=== PATIENT | female | born 1980 | race Caucasian/White ===

== ENCOUNTER → 2016-02-26 | Outpatient (CLI) | payer BC ==
[2016-02-26 18:04] LABS: RANDOM URINE PROTEIN 18 MG/DL (0-11.99)
== END ==
LOC: MOB LAB 16:46
PROVIDERS: ATTEND Student in an Organized Health Care Education/Training Program
DX: O13.3 Gestational [pregnancy-induced] hypertension without significant proteinuria, third trimester (principal); Z3A.39 39 weeks gestation of pregnancy
CPT/HCPCS: 82565; 84156

== ENCOUNTER 2016-02-27 08:47 | Outpatient (CLI) | payer BC ==
[2016-02-27] MEDS ORDERED: NORMAL SALINE 10 ML SYRINGE FLUSH IVP PRN (08:52)
[2016-02-27 09:10] VITALS: RESP 18; TEMP 98.2
[2016-02-27 09:32] LABS: HEMATOCRIT 33.4 % (37.0-47.0); HEMOGLOBIN 10.9 g/dL (12.0-16.0); MEAN CORPUSCULAR HEMOGLOBIN 28.5 PG (27-31); MEAN CORPUSCULAR HGB CONC 32.6 g/dL (33-37); MEAN PLATELET VOLUME 10.4 FL (7.4-12.2); RDW COEFFICIENT OF VARIATION 14.4 % (11.5-14.5); RED BLOOD COUNT 3.82 10^6/uL (4.20-5.40); WHITE BLOOD COUNT 9.9 10^3/uL (4.8-10.8)
[2016-02-27 10:13] LABS: ASPARTATE AMINO TRANSFERASE 18 IU/L (8-39); BILIRUBIN,TOTAL 0.5 mg/dL (0.3-1.2); BLOOD UREA NITROGEN 11 mg/dL (7-22); BUN/CREATININE RATIO 18.33 (6-20); CALCIUM 8.9 mg/dL (8.7-10.7); CHLORIDE 107 meq/L (98-112); CREATININE 0.6 mg/dL (0.50-1.20); EST GLOMERULAR FILTRATION > 60 (>60 ml/min/1.73m(2)); GLUCOSE 89 mg/dL (78-110); POTASSIUM 3.7 meq/L (3.8-5.2); SODIUM 135 meq/L (135-145); URIC ACID 5.9 mg/dl (2.5-6.2)
[2016-02-27 10:14] LABS: TOTAL PROTEIN 6.3 g/dL (6.1-8.0)
[2016-02-28 08:21] LABS: RANDOM URINE PROTEIN < 5 MG/DL (0-11.99)
--- NOTE | 2016-02-28 08:49 | PDOC(PROG) ---
Intake - - Reason for Visit/Chief Complaint: NST Admitted From: Home - Estimated Due Date: 03/04/16 Gestational Age in Weeks and Days: 39 Weeks and 2 Days : 1 Para: 0 Term Births: 0 Births: 0 Number of Abortions (Spont./Elective): 0 Living Children: 0 - Labs Blood Type and Rh: O- Group B Strep: Negative Hepatitis B Surface Antigen: Absent HIV: Negative Rubella Status: Immune VDRL/RPR: Absent Maternal - Vital Signs Last Taken Vital Signs: Vital Signs - Last Taken Temperature 98.2 F 02/27/16 09:10 Pulse Rate 91 02/27/16 09:10 Respiratory Rate 18 02/27/16 09:10 Blood Pressure 133/86 02/27/16 09:10 Pulse Ox 98 02/27/16 09:10 - Uterine Activity Uterine Contraction Monitor Mode: External Uterine Contraction Pattern: Absent - Vaginal Discharge Vaginal Bleeding Amount: None Vaginal Discharge Amount: None Monitoring - Uterine Activity Uterine Contraction Monitor Mode: External Uterine Contraction Pattern: Absent Results - Labs CBC and BMP: 02/27/16 08:52 02/27/16 08:52 Assessment and Plan - Patient Problems (1) Proteinuria affecting in third trimester Status: Acute Support Text: Patient's random urine pr:cr came back 0.6. Patient in for NST, BPs and labs. All wnl. Cervical check cl/thick/-2. Precautions. Plan biweekly NSTs, weekly labs, and close monitoring of BP.
== END 2016-02-27 09:35 | disposition home or self-care (01) ==
LOC: OBOP 08:47
PROVIDERS: ATTEND Student in an Organized Health Care Education/Training Program
DX: O16.3 Unspecified maternal hypertension, third trimester (principal); O12.13 Gestational proteinuria, third trimester; Z3A.39 39 weeks gestation of pregnancy
CPT/HCPCS: 59025; 80053; 82565; 83615; 84156; 84550; 85025; 99211

== ENCOUNTER 2016-03-02 16:03 | Outpatient (CLI) | payer BC ==
[2016-03-02] MEDS ORDERED: NORMAL SALINE 10 ML SYRINGE FLUSH IVP PRN (16:36)
== END 2016-03-02 16:40 | disposition home or self-care (01) ==
LOC: OBOP 16:03
PROVIDERS: ATTEND Student in an Organized Health Care Education/Training Program
DX: O12.13 Gestational proteinuria, third trimester (principal); Z3A.39 39 weeks gestation of pregnancy
CPT/HCPCS: 59025; 81003; 99211

== ENCOUNTER 2016-03-03 18:37 | Outpatient (CLI) | payer BC ==
[2016-03-03] MEDS ORDERED: NORMAL SALINE 10 ML SYRINGE FLUSH IVP PRN (19:17)
[2016-03-03 19:46] VITALS: RESP 20; TEMP 98.1
--- NOTE | 2016-03-07 10:34 | PDOC(PROG) ---
Intake - - Reason for Visit/Chief Complaint: Leakage of Fluid Admitted From: Home - Estimated Due Date: 03/04/16 Gestational Age in Weeks and Days: 40 Weeks and 3 Days : 1 Para: 0 Term Births: 0 Births: 0 Number of Abortions (Spont./Elective): 0 Living Children: 0 - Labs Blood Type and Rh: O- Group B Strep: Negative Hepatitis B Surface Antigen: Absent HIV: Negative Rubella Status: Immune VDRL/RPR: Absent Maternal - Vital Signs Last Taken Vital Signs: Vital Signs - Last Taken Temperature 98.1 F 03/03/16 19:18 Pulse Rate 76 03/03/16 19:18 Respiratory Rate 20 03/03/16 19:18 Blood Pressure 126/77 03/03/16 19:18 Pulse Ox 98 03/03/16 19:18 - Uterine Activity Uterine Contraction Monitor Mode: External Uterine Contraction Pattern: Absent - Vaginal Discharge Vaginal Bleeding Amount: None Vaginal Discharge Amount: Small Vaginal Discharge Description: Watery Vaginal Discharge Color: Clear Vaginal Discharge Odor: Odorless Vaginal Itching: No Monitoring - Uterine Activity Uterine Contraction Monitor Mode: External Uterine Contraction Pattern: Absent Results - Bedside Testing Bedside Urine Ketone: Negative Bedside Urine Leukocytes Esterase: Negative Bedside Urine Nitrite: Negative Bedside Urine Occult Blood: Negative Bedside Urine Protein: Negative Bedside Specific Craig: 1.020 Assessment and Plan - Assessment / Plan Additional Assessment/Plan Details: Negative amnisure test. Reassuring maternal and evaluation. No evidence of labor. Discharge to home in good condition. - Time Time Spent With Patient: Less Than 15 Minutes
== END 2016-03-03 19:50 | disposition home or self-care (01) ==
LOC: OBOP 18:37
PROVIDERS: ATTEND Obstetrics & Gynecology
DX: O26.893 Other specified pregnancy related conditions, third trimester (principal); N89.8 Other specified noninflammatory disorders of vagina; Z3A.39 39 weeks gestation of pregnancy
CPT/HCPCS: 59025; 81003; 84112; 99211

== ENCOUNTER → 2016-03-04 | Outpatient (CLI) | payer BC | LOC: MOB LAB 16:08 | PROVIDERS: ATTEND Student in an Organized Health Care Education/Training Program | DX: O13.3 Gestational [pregnancy-induced] hypertension without significant proteinuria, third trimester (principal); Z3A.40 40 weeks gestation of pregnancy | CPT/HCPCS: 82565; 84156 ==

== ENCOUNTER 2016-03-05 16:00 | Outpatient (CLI) | payer BC ==
[2016-03-05] MEDS ORDERED: NORMAL SALINE 10 ML SYRINGE FLUSH IVP PRN (16:14)
[2016-03-05 16:19] VITALS: RESP 20; TEMP 97.7
[2016-03-05 16:47] LABS: HEMATOCRIT 32.7 % (37.0-47.0); HEMOGLOBIN 11.1 g/dL (12.0-16.0); MEAN CORPUSCULAR HEMOGLOBIN 29.6 PG (27-31); MEAN CORPUSCULAR HGB CONC 33.9 g/dL (33-37); MEAN PLATELET VOLUME 10.5 FL (7.4-12.2); RDW COEFFICIENT OF VARIATION 14.5 % (11.5-14.5); RED BLOOD COUNT 3.75 10^6/uL (4.20-5.40); WHITE BLOOD COUNT 9.95 10^3/uL (4.8-10.8)
[2016-03-05 16:56] LABS: ASPARTATE AMINO TRANSFERASE 18 IU/L (8-39); BILIRUBIN,TOTAL 0.6 mg/dL (0.3-1.2); BLOOD UREA NITROGEN 11 mg/dL (7-22); BUN/CREATININE RATIO 13.75 (6-20); CALCIUM 9.3 mg/dL (8.7-10.7); CHLORIDE 104 meq/L (98-112); CREATININE 0.8 mg/dL (0.50-1.20); EST GLOMERULAR FILTRATION > 60 (>60 ml/min/1.73m(2)); GLUCOSE 73 mg/dL (78-110); POTASSIUM 3.8 meq/L (3.8-5.2); SODIUM 134 meq/L (135-145); TOTAL PROTEIN 6.5 g/dL (6.1-8.0); URIC ACID 5.9 mg/dl (2.5-6.2)
== END 2016-03-05 18:00 | disposition home or self-care (01) ==
LOC: OBOP 16:00
PROVIDERS: ATTEND Student in an Organized Health Care Education/Training Program
DX: O13.3 Gestational [pregnancy-induced] hypertension without significant proteinuria, third trimester (principal); Z3A.40 40 weeks gestation of pregnancy
CPT/HCPCS: 59025; 80053; 81003; 83615; 84550; 85025; 99211

== ENCOUNTER 2016-03-08 18:26 | Inpatient (IN) | payer BC ==
[2016-03-08] MEDS ORDERED: Famotidine Inj 20 MG in Normal Saline Flush 10 ML IVP PRN ×4 (19:43)
[2016-03-08] MEDS ORDERED: diphenhydrAMINE 50 MG/1 ML VIAL IVP PRN (19:43)
[2016-03-08] MEDS ORDERED: NALOXONE 0.4 MG/1 ML VIAL IVP PRN (19:43)
[2016-03-08] MEDS ORDERED: Phenylephrine Inj 50 MCG in Normal Saline Flush 0.5 ML IVP PRN (19:43)
[2016-03-08] MEDS ORDERED: CALCIUM CARBONATE 500 MG (TUMS) CHEWABLE TABLET PO PRN (19:43)
[2016-03-08] MEDS ORDERED: LIDOCAINE W/ SODIUM BICARB 0.5 ML SYR SUBD PRN (19:43)
[2016-03-08] MEDS ORDERED: TERBUTALINE SULFATE 1 MG/1 ML SDV SUBCUT PRN (19:43)
[2016-03-08] MEDS ORDERED: Lidocaine 1% 10 MG/ML - 20 ML VIAL SUBCUT PRN (19:43)
[2016-03-08] MEDS ORDERED: Nalbuphine Inj 20 MG/ML Ampule IVP PRN (19:43)
[2016-03-08] MEDS ORDERED: ePHEDrine Inj 5 MG in Normal Saline Flush 1 ML IVP PRN (19:43)
[2016-03-08] MEDS ORDERED: Naloxone Inj 0.01 MG in Normal Saline Flush 1 ML IVP PRN (19:43)
[2016-03-08] MEDS ORDERED: MISOPROSTOL 200 MCG TABLET RECTAL PRN (19:43)
[2016-03-08] MEDS ORDERED: OXYTOCIN 10 UNIT/1 ML IM PRN (19:43)
[2016-03-08] MEDS ORDERED: CefOXitin Inj 2 GM in Sodium Chloride 0.9% 100 ML IV PRN (19:43)
[2016-03-08] MEDS ORDERED: BUTORPHANOL TARTRATE 2 MG/1 ML VIAL IVP PRN (19:43)
[2016-03-08] MEDS ORDERED: Carboprost Inj 250 MCG/ML AMP IM PRN (19:43)
[2016-03-08] MEDS ORDERED: NORMAL SALINE 10 ML SYRINGE FLUSH IVP PRN (19:43)
[2016-03-08] MEDS ORDERED: CITRIC ACID/SODIUM CITRATE 30 ML CUP PO PRN (19:43)
[2016-03-08] MEDS ORDERED: ONDANSETRON 4 MG/2 ML VIAL IVP PRN (19:43)
[2016-03-08] MEDS ORDERED: METHYLERGONOVINE MALEATE 0.2 MG/1 ML VIAL IM PRN (19:43)
[2016-03-08] MEDS ORDERED: Metoclopramide Inj 10 MG/2 ML VIAL IV PRN (19:43)
[2016-03-08] MEDS ORDERED: Oxytocin 20 Units + LR 1,000 ML IV SCH (19:45)
[2016-03-08] MEDS ORDERED: Misoprostol Tab 100 MCG TAB VAGINAL PRN (19:51)
[2016-03-08 20:40] LABS: HEMATOCRIT 35.9 % (37.0-47.0); MEAN CORPUSCULAR HEMOGLOBIN 28.6 PG (27-31); MEAN CORPUSCULAR HGB CONC 33.4 g/dL (33-37); MEAN PLATELET VOLUME 10.7 FL (7.4-12.2); RDW COEFFICIENT OF VARIATION 14.4 % (11.5-14.5); RED BLOOD COUNT 4.19 10^6/uL (4.20-5.40); WHITE BLOOD COUNT 11.73 10^3/uL (4.8-10.8)
[2016-03-08 20:54] LABS: ASPARTATE AMINO TRANSFERASE 24 IU/L (8-39); BILIRUBIN,TOTAL 0.4 mg/dL (0.3-1.2); BLOOD UREA NITROGEN 12 mg/dL (7-22); CHLORIDE 106 meq/L (98-112); CREATININE 0.8 mg/dL (0.50-1.20); EST GLOMERULAR FILTRATION > 60 (>60 ml/min/1.73m(2)); GLUCOSE 96 mg/dL (78-110); POTASSIUM 3.9 meq/L (3.8-5.2); SODIUM 137 meq/L (135-145); TOTAL PROTEIN 6.5 g/dL (6.1-8.0); URIC ACID 6.1 mg/dl (2.5-6.2)
[2016-03-08] MEDS ORDERED: Zolpidem Tab 5 MG TAB PO ONE (21:00)
[2016-03-08] MEDS: Lactated Ringers-OB Dept 1,000 ML PRIMARY IV SCH (21:01)
[2016-03-09] MEDS ORDERED: Misoprostol Tab 100 MCG TAB VAGINAL PRN (04:07)
[2016-03-09] MEDS: fentaNYL Inj 100 MCG/2 ML VIAL IV PRN ×2 (04:32→17:21)
[2016-03-09] MEDS ORDERED: LEVOTHYROXINE 75 MCG PO SCH (06:30)
[2016-03-09] MEDS ORDERED: Oxytocin 20 Units + LR 1,000 ML IV SCH (10:30)
--- NOTE | 2016-03-09 12:10 | OB.PROGRES ---
Interval History: 35 yo at 40 5/7 weeks gestation admitted for elective IOL. Prengnancy complicated by proteinuria, which had resolved on subsequent random urine pr: cr. She has had elevated pressures and edema, but still not diagnostic for gestational HTN or preeclampsia. Normal 1 hour OGTT. RH negative, received rhogam at 29 weeks gestation. Admitted last night. She received 2 doses of 25 mcg cytotec pv. Is sitting this morning, resting. Contractions seemed to have slowed down. PMH - Allergy induced asthma, diagnosed in 2012. Currently on symbicort 160/4.5 2 puffs bid - well controlled. Rare albuterol use. Hypothyroid - diagnosed in 2012. Currently on 75mcg synthroid. Tension HAs Seasonal allergies - takes claritin D, has not since she found out she was , flonase Chronic herpes simplex - 1000mg po daily valacyclovir PSH - Choleycstectomy 2008 [place] teeth extraction Vocal cord cyst removal SH - Guidance counselor No illicit drug or tobacco use. Social etoh use prior FH - most significant for mother of PE post op, 2 sisters with histories of SABs. Paternal FH - Mo - T2DM, urinary reflux Medications: Symbicort 160/4.5 2 puffs bid Albuterol prn Synthroid - dose increased to 1.5 tabs of 75 mcg 4 days/week, 1 tab 3 days/week Claritin D flonase Valacyclovir NKDA Objective - Cervical Exam Cervical Exam: 60/-2, posterior per RN [place]: not currently on monitor Heart Rate Interpretation Category: Category I - Labs CBC and BMP: 03/11/16 05:38 03/08/16 20:36 Labs - Last 24 Hours: Laboratory Results 03/08/16 Range/Units 20:36 WBC 11.73 H (4.8-10.8) 10^3/uL RBC 4.19 L (4.20-5.40) 10^6/uL Hgb 12.0 (12.0-16.0) g/dL Hct 35.9 L (37.0-47.0) % MCV 85.7 (81-99) FL MCH 28.6 (27-31) PG MCHC 33.4 (33-37) g/dL RDW Std Deviation 43.9 (39-50) fL RDW Coeff of Jong 14.4 (11.5-14.5) % Plt Count 244 (140-350) 10*3/uL MPV 10.7 (7.4-12.2) FL Sodium 137 (135-145) meq/L Potassium 3.9 (3.8-5.2) meq/L Chloride 106 (98-112) meq/L Carbon Dioxide 19 L (23-33) meq/L Anion Gap 12 (5-20) BUN 12 (7-22) mg/dL Creatinine 0.8 (0.50-1.20) mg/dL Estimated GFR > 60 (>60 ml/min/1.73m(2)) BUN/Creatinine Ratio 15.00 (6-20) Glucose 96 (78-110) mg/dL Calculated Osmolality 283.0 (267-292) mOsm/kg Uric Acid 6.1 (2.5-6.2) mg/dl Calcium 10.0 (8.7-10.7) mg/dL Total Bilirubin 0.4 (0.3-1.2) mg/dL AST 24 (8-39) IU/L ALT 27 (9-52) IU/L Alkaline Phosphatase 117 (38-126) IU/L Lactate Dehydrogenase 485 (313-618) IU/L Total Protein 6.5 (6.1-8.0) g/dL Albumin 3.5 (3.5-4.8) g/dL Globulin 3.0 (2.50-4.10) g/dL Albumin/Globulin Ratio 1.10 L (1.3-2.0) mg/g - Vital Signs Last Taken Vital Signs: Vital Signs - Last Taken Temperature 98.3 F 03/09/16 04:00 Pulse Rate 74 03/09/16 07:00 Respiratory Rate 20 03/09/16 04:45 Blood Pressure 94/62 03/09/16 05:54 Pulse Ox 98 03/09/16 07:00 Assessment and Plan - Patient Problems (1) Term Current Visit: Yes Status: Acute Support Text: 35 yo at 40 5/7 weeks gestation -plan to give another pv dose of cytotec, then proceed with pitocin if cervix ripened -will eventually want an epidural -RH negative, will assess for rhogam pp -GBS negative -continue close monitoring
[2016-03-09] MEDS: Lactated Ringers-OB Dept 1,000 ML PRIMARY IV SCH ×3 (16:30→19:00)
[2016-03-09] MEDS: Oxytocin 20 Units + LR 1,000 ML IV SCH (16:35)
--- NOTE | 2016-03-09 17:23 | OB.PROGRES ---
Interval History: 35 yo at 40 5/7 weeks gestation, admitted for elective IOL. Getting more uncomfortable. S/p SROM Objective - Cervical Exam Cervical Exam: /-2 [place]: q2-3 mins Heart Rate: baseline 140, moderate variability, +accels, one subtle early decel after IUPC placement Heart Rate Interpretation Category: Category II - Labs CBC and BMP: 03/08/16 20:36 03/08/16 20:36 Labs - Last 24 Hours: Laboratory Results 03/08/16 03/08/16 03/09/16 Range/Units 20:30 20:36 16:05 WBC 11.73 H (4.8-10.8) 10^3/uL RBC 4.19 L (4.20-5.40) 10^6/uL Hgb 12.0 (12.0-16.0) g/dL Hct 35.9 L (37.0-47.0) % MCV 85.7 (81-99) FL MCH 28.6 (27-31) PG MCHC 33.4 (33-37) g/dL RDW Std Deviation 43.9 (39-50) fL RDW Coeff of Jong 14.4 (11.5-14.5) % Plt Count 244 (140-350) 10*3/uL MPV 10.7 (7.4-12.2) FL Sodium 137 (135-145) meq/L Potassium 3.9 (3.8-5.2) meq/L Chloride 106 (98-112) meq/L Carbon Dioxide 19 L (23-33) meq/L Anion Gap 12 (5-20) BUN 12 (7-22) mg/dL Creatinine 0.8 (0.50-1.20) mg/dL Estimated GFR > 60 (>60 ml/min/1.73m(2)) BUN/Creatinine Ratio 15.00 (6-20) Glucose 96 (78-110) mg/dL Calculated Osmolality 283.0 (267-292) mOsm/kg Uric Acid 6.1 (2.5-6.2) mg/dl Calcium 10.0 (8.7-10.7) mg/dL Total Bilirubin 0.4 (0.3-1.2) mg/dL AST 24 (8-39) IU/L ALT 27 (9-52) IU/L Alkaline Phosphatase 117 (38-126) IU/L Lactate Dehydrogenase 485 (313-618) IU/L Total Protein 6.5 (6.1-8.0) g/dL Albumin 3.5 (3.5-4.8) g/dL Globulin 3.0 (2.50-4.10) g/dL Albumin/Globulin Ratio 1.10 L (1.3-2.0) mg/g Amnio Fld Other Info Positive (NEGATIVE) Blood Type O NEGATIVE Antibody Screen Negative - Vital Signs Last Taken Vital Signs: Vital Signs - Last Taken Temperature 98.0 F 03/09/16 10:00 Pulse Rate 79 03/09/16 11:00 Respiratory Rate 18 03/09/16 11:00 Blood Pressure 131/79 03/09/16 10:00 Pulse Ox 99 03/09/16 15:00 Assessment and Plan - Patient Problems (1) Term Current Visit: Yes Status: Acute Support Text: -SROM at 1553, clear fluid, IUPC just placed. -Will titrate pitocin according to MVUs. -Plans to get an epidural -GBS negative -Continue close monitoring
[2016-03-09] MEDS ORDERED: Fent/Bupiv 2mcg/0.0625% Epid 250 ML ONE (18:58)
--- NOTE | 2016-03-09 19:26 | CRNA.PROCE ---
Central Neuraxis Block Placemt - - Safety Measures: Time Out Taken, Site Verified - - Type of Block: Epidural Reason for Block: Analgesia Moniters Used During Block: SPO2, NIBP Positioning: Sitting Skin Prep Used: ChloroPrep Draped: Yes Spinal Needle Used: 18 Hustead 80 mm Local Anesthetic - Enter Amount Used in Comment Field: 1.5 % Xylocaine with Epinephrine 1:200,000 (mL): Yes (5ml) Number of Centimeters Catheter Threaded: 4 Bioclusive Dressing Applied: Yes
[2016-03-09] MEDS ORDERED: fentaNYL 2 MCG/BUPIVACAINE 0.0625%/NS 0.9% 250 ML BAG EPIDURAL SCH (19:30)
[2016-03-10] MEDS ORDERED: Nalbuphine Inj 20 MG/ML Ampule IVP ONE (01:32)
[2016-03-10] MEDS: fentaNYL Inj 100 MCG/2 ML VIAL IV PRN (01:35)
[2016-03-10] MEDS ORDERED: BUPivacaine Inj 0.5% PF (5mg/ml) 30ml vial ONE (05:32)
[2016-03-10] MEDS ORDERED: MIDAZOLAM 5 MG/1 ML ONE ×4 (05:33→07:00)
[2016-03-10] MEDS ORDERED: KETAMINE 100 MG/1 ML - 5 ML ONE (05:38)
[2016-03-10] MEDS ORDERED: fentaNYL Inj 100 MCG/2 ML VIAL ONE ×2 (05:41→06:23)
[2016-03-10] MEDS ORDERED: BUPivacaine Liposome/PF (Exparel) Inj 20ml vial INFIL ONE (06:16)
[2016-03-10] MEDS ORDERED: LEVOTHYROXINE 75 MCG PO SCH (06:30)
[2016-03-10] MEDS ORDERED: Lactated Ringers 1,000 ML PRIMARY IV ONE (06:58)
[2016-03-10] MEDS ORDERED: fentaNYL Inj 250 MCG/5 ML VIAL ONE (07:05)
[2016-03-10] MEDS: Oxytocin 20 Units + LR 1,000 ML IV SCH (07:47)
--- NOTE | 2016-03-10 08:12 | CRNA.PROCE ---
Central Neuraxis Block Placemt - - Safety Measures: Time Out Taken - - Type of Block: Subarachnoid Reason for Block: Surgical Moniters Used During Block: SPO2, NIBP Skin Prep Used: ChloroPrep Skin Infiltration - Enter Amount Used in Comment Field: 1% Xylocaine (mL): Yes ( skin wheal) Spinal Needle Used: 25 Macey 80 mm Local Anesthetic - Enter Amount Used in Comment Field: 0.75 % Bupivacaine with Dextrose (ml): Yes (2ml) Bioclusive Dressing Applied: No
[2016-03-10] MEDS ORDERED: D5-LR 1,000 ML PRIMARY IV SCH (08:45)
--- NOTE | 2016-03-10 08:48 | OB.DEL.SUM ---
Delivery Note Delivery Summary: Date of Delivery: 03/10/2016 Predelivery Diagnoses: 1. 35 yo , intrauterine at 40 6/7 weeks gestation 2. Elective IOL Postdelivery Diagnoses: 1. 35 yo , s/p vacuum assisted vaginal delivery 2. Spontaneous rupture of membranes 3. Partial fourth degree perineal laceration Procedure: 1. Low vacuum assisted vaginal delivery 2. 4th degree perineal laceration repair Delivery Doctor: Saman Turner MD Anesthesia: Epidural Findings: Term LGA male in ALEX presentation weighing 9lbs 3.4oz, Apgars 10,10. Labor Course: Patient is a 35 yo at 40 6/7 weeks gestation who was admitted on 03/08 for elective IOL. complicated by proteinuria that resolved. She did have increasing pressures and edema at the end but never met preeclampsia criteria. GBS negative. After 2 doses of cytotec 25mcg pv she was bladimir too frequently to dose again. She was then started on low dose pitocin for continued cervical ripening. At approx 1500 03/09/16 she spontaneously ruptured, clear fluid noted. An IUPC was placed and she was titrated up on her pitocin to achieve adequate contractions. She was complete at approximately 0200. The tolerated pushing well up until she was +3. He then started having late decels that were slow to recover. O2 and pushing from her side were tried. Ultimately decision made to place the vacuum. Patient was verbally consented. Kiwi vacuum placed. Pressure applied until the green zone. Mediolateral episiotomy was cut after infiltrating with 1% lidocaine. 1 popoff. Vacuum used for approximately 4-5 contractions. At 0356 she delivered in ALEX presentation. No nuchal cord. The baby was placed on mom's abdomen. Cord was clamped. While drying the infant the baby was pulled up just enough for the cord to tear. This was recognized immediately, a Hafsa clamp was placed. Minimal blood was lost. A section of cord was saved for cord gases. The placenta then delivered spontaneously intact with a 3 vessel cord at 0359. She did have notable bleeding at that time and Methergine was given. Inspection of the vaginal vault showed at least a 3rd degree perineal laceration and decision was made to go to the OR for repair. EBL 300 cc. Perineal Laceration Repair: Java Groovy Developer: Giovanni Cruz MD Anesthesia: Garret Sanchez CRNA Patient was consented verbally to proceed with exam in the OR and necessary repair. She was placed in lithotomy position in stirrups. SCDs were placed. She was given 2 grams of mefoxin preop. A spinal was placed. This never provided adequate anesthesia and she ultimately received ketamine and versed. She was then prepped and draped in the usual sterile fashion. Exam was then completed under anesthesia and revealed a 4th degree perineal laceration. Allis clamps were used to fully mobilize the ends of the sphincter. To begin, Dr. Cruz used 4-0 vicryl, starting at the apex of the rectal mucosa and ran it to close the rectal mucosa. A finger stick was noted, he then scrubbed out and cleaned the site. I continued the repair with 4-0 vicryl. Rectal exam was completed throughout. 4-0 vicryl was run subcuticularly to begin the outer repair. Attention was then turned to repairing the external anal sphincter. Figure of 8 stitches were placed posteriorly, superiorly and anteriorly with 0 vicryl on CT1s, end-to-end technique repair. These were all tied down at the same time. On rectal exam no defects were noted, decent tone noted. Throughout repair one finger was in the rectum to ensure no suture pierced the mucosa. A garcia was then placed. After good visualization provided, the apex of the vaginal tear was then identified (noted to be quite deep). 3-0 vicryl rapide was used in a running- locking fashion to approximate the vaginal epithelium and close potential space. Upon arriving at the hymenal ring, a crown stitch was placed. The stitch was continued to where the repair of the anal mucosa had left off. A new 3-0 vicryl rapide was used to subcuticularly close from the anus to the perineum. The vagina was then thoroughly irrigated with warm saline. The rectum was again inspected. About 10 cc of 0.5% marcaine was injected locally to help with pain control. Lap and sponge counts were correct. The patient tolerated the procedure well and was transferred back to her room for recovery. Note, after every exam involving the rectum, gloves were exchanged for sterile gloves. LR 1300 cc EBL 120 cc UOP 1000 cc - Patient Problems (1) Term Current Visit: Yes Status: Acute (2) Status post vacuum-assisted vaginal delivery Current Visit: Yes Status: Acute (3) Fourth degree perineal laceration Current Visit: Yes Status: Acute
[2016-03-10] MEDS ORDERED: D5-LR 1,000 ML PRIMARY IV ONE (09:04)
[2016-03-10] MEDS ORDERED: CALCIUM CARBONATE 500 MG (TUMS) CHEWABLE TABLET PO PRN (13:25)
[2016-03-10] MEDS ORDERED: Oxytocin 20 Units + LR 1,000 ML IV SCH (13:25)
[2016-03-10] MEDS ORDERED: diphenhydrAMINE 25 MG CAPSULE PO PRN (13:25)
[2016-03-10] MEDS ORDERED: LANOLIN HPA 40 GM TUBE TOPICAL PRN (13:25)
[2016-03-10] MEDS ORDERED: RHO(D) IMMUNE GLOBULIN 1500 UNIT(300 mcg)SYRIN IM ONE ×2 (13:25)
[2016-03-10] MEDS ORDERED: BENZOCAINE/MENTHOL SPRAY 56 GM BOTTLE TOPICAL PRN (13:25)
[2016-03-10] MEDS ORDERED: HEPARIN 5000 UNIT/1 ML SUBCUT SCH (13:25)
[2016-03-10] MEDS ORDERED: Ondansetron ODT Tab 4 MG TAB PO PRN (13:25)
[2016-03-10] MEDS ORDERED: METHYLERGONOVINE MALEATE 0.2 MG/1 ML VIAL IM PRN (13:25)
[2016-03-10] MEDS ORDERED: ONDANSETRON 4 MG/2 ML VIAL IVP PRN (13:25)
[2016-03-10] MEDS ORDERED: OXYTOCIN 10 UNIT/1 ML IM ONE (13:25)
[2016-03-10] MEDS ORDERED: ACETAMINOPHEN 325 MG TABLET PO PRN (13:25)
[2016-03-10] MEDS ORDERED: diphenhydrAMINE 50 MG/1 ML VIAL IVP PRN (13:25)
[2016-03-10] MEDS ORDERED: Methylergonovine Tab 0.2 MG TAB PO PRN (13:25)
[2016-03-10] MEDS ORDERED: NORMAL SALINE 10 ML SYRINGE FLUSH IVP PRN (13:25)
[2016-03-10] MEDS ORDERED: Nalbuphine Inj 20 MG/ML Ampule IVP PRN (13:25)
[2016-03-10] MEDS ORDERED: MISOPROSTOL 200 MCG TABLET RECTAL ONE (13:25)
[2016-03-10] MEDS: Lactated Ringers-OB Dept 1,000 ML PRIMARY IV SCH (14:22)
[2016-03-10] MEDS ORDERED: LIDOCAINE W/ SODIUM BICARB 0.5 ML SYR ONE (15:19)
[2016-03-10] MEDS: oxyCODONE-ACETAMINOPHEN 5-325 TAB PO PRN ×2 (18:47→23:30)
[2016-03-10] MEDS: GLYCERIN/WITCH HAZEL 1 BOX TOPICAL PRN (18:47)
[2016-03-10] MEDS ORDERED: Albumin Human Soln 25% 25 GM in Premix 1 BAG IV ONE (18:57)
[2016-03-10] MEDS: DOCUSATE 100 MG CAPSULE PO SCH ×2 (21:40→22:09)
[2016-03-10] MEDS: D5-LR 1,000 ML PRIMARY IV SCH (21:41)
[2016-03-11] MEDS: D5-LR 1,000 ML PRIMARY IV SCH ×2 (00:05→10:37)
[2016-03-11] MEDS: HEPARIN 5000 UNIT/1 ML SUBCUT SCH ×4 (00:06→15:17)
[2016-03-11] MEDS: oxyCODONE-ACETAMINOPHEN 5-325 TAB PO PRN ×6 (02:17→23:27)
[2016-03-11 06:13] LABS: HEMATOCRIT 29.2 % (37.0-47.0); HEMOGLOBIN 9.4 g/dL (12.0-16.0); MEAN CORPUSCULAR HEMOGLOBIN 28.9 PG (27-31); MEAN CORPUSCULAR HGB CONC 32.2 g/dL (33-37); MEAN PLATELET VOLUME 10.8 FL (7.4-12.2); RDW COEFFICIENT OF VARIATION 14.9 % (11.5-14.5); RED BLOOD COUNT 3.25 10^6/uL (4.20-5.40); WHITE BLOOD COUNT 14.64 10^3/uL (4.8-10.8)
[2016-03-11] MEDS: LEVOTHYROXINE 75 MCG PO SCH (07:08)
--- NOTE | 2016-03-11 07:21 | CRNA.PROGR ---
Anesthesia Note Anesthesia Progress Note: Post OP Anesthesia Note Pt sitting up in bed, awake alert and oriented. Discussed with patient the potential for post dural puncture headache, pt understands concerns and will let us know if there are any symptoms. She is tolerating a regular diet. She denies any residual problems with anesthesia. Current VS are stable. Vital Signs (Last 8 hours) Temp Pulse Resp BP Pulse Ox 03/11/16 05:00 98.3 F 84 20 125/77 93
[2016-03-11] MEDS: Prenatal Multivitamin Tab 1 TAB TAB PO SCH (09:32)
[2016-03-11] MEDS: POLYETHYLENE GLYCOL 3350 17 GM POWDER PO SCH (09:32)
[2016-03-11] MEDS: DOCUSATE 100 MG CAPSULE PO SCH ×2 (09:33→22:00)
[2016-03-11] MEDS: Senna/Docusate Tab 1 TAB TAB PO SCH ×2 (09:33→22:01)
--- NOTE | 2016-03-11 12:17 | OB.PROGRES ---
Subjective Post Day: 1 Pain Management: PO Sellers Catheter: Yes Flatus: Yes Diet: Regular [place] Feeding Method: Exculsively Ambulating: Yes Objective - General General Appearance: POSITIVE: No Acute Distress, Cooperative - Cardiovacular Cardiovascular Exam: POSITIVE: RRR Edema: +2 Pedal Edema Extremities: Negative Emma's - Bilaterally - Respiratory Respiratory Exam: POSITIVE: Clear to Auscultation - Bilaterally, Breathing Non Labored - Abdomen Bowel Sounds: Present - Fundus/Lochia/Perineum Uterus Consistency: Firm Uterus Position: POSITIVE: Below Umbilicus Lochia Amount: Moderate 25-50 ml Lochia Color: Rubra/Red - Breast Breast Condition: POSITIVE: Soft Nipple Surface Characteristics: POSITIVE: Skin Intact Assesstment / Plan (1) Term Current Visit: Yes Status: Acute (2) Status post vacuum-assisted vaginal delivery Current Visit: Yes Status: Acute (3) Fourth degree perineal laceration Current Visit: Yes Status: Acute Support Text: 35 yo G1 now P1, PPD 1 s/p vacuum assisted vaginal delivery and 4th degree repair. -Breast feeding - continue to support -Moderate lochia -Pain control with percocet. No NSAIDS 2/2 DVT ppx. -Aggressive bowel regimen -Did receive rhogam -Heparin for dvt ppx given pp, obesity, FH, and long repair in OR -Anticipate d/c in 1-2 days
[2016-03-12] MEDS: HEPARIN 5000 UNIT/1 ML SUBCUT SCH ×2 (00:10→07:58)
[2016-03-12] MEDS: oxyCODONE-ACETAMINOPHEN 5-325 TAB PO PRN ×4 (04:13→19:29)
[2016-03-12] MEDS ORDERED: LEVOTHYROXINE 75 MCG PO SCH (06:30)
[2016-03-12] MEDS: Senna/Docusate Tab 1 TAB TAB PO SCH ×2 (08:18→22:05)
[2016-03-12] MEDS: POLYETHYLENE GLYCOL 3350 17 GM POWDER PO SCH ×2 (08:18→22:05)
[2016-03-12] MEDS: DOCUSATE 100 MG CAPSULE PO SCH ×2 (08:18→22:04)
[2016-03-12] MEDS: Prenatal Multivitamin Tab 1 TAB TAB PO SCH (08:18)
[2016-03-12] MEDS ORDERED: ENOXAPARIN SODIUM 40 MG/0.4 ML SYRINGE SUBCUT SCH (09:00)
[2016-03-12 10:26] LABS: PROTHROMBIN TIME 9.3 secs (9.7-11.4)
--- NOTE | 2016-03-12 11:35 | CRNA.PROCE ---
Central Neuraxis Block Placemt - - Safety Measures: Time Out Taken - - Type of Block: Epidural (Blood Patch) Moniters Used During Block: SPO2, NIBP Skin Prep Used: ChloroPrep Draped: Yes Skin Infiltration - Enter Amount Used in Comment Field: 1% Xylocaine (mL): Yes ( skin wheal) Spinal Needle Used: 18 Hustead 80 mm (Passed to [place] UMANG with saline) Bioclusive Dressing Applied: Yes - - Additional Details: Epidural blood patch Pt has complained of a continual worsening of occipital headache since late yesterday afternoon. This morning the pain is considerably worse with nausea associated. Decision was made to do epidural blood patch if INR is within acceptable range. Laboratory Results 03/08/16 03/08/16 03/09/16 Range/Units 20:30 20:36 16:05 WBC 11.73 H (4.8-10.8) 10^3/uL RBC 4.19 L (4.20-5.40) 10^6/uL Hgb 12.0 (12.0-16.0) g/dL Hct 35.9 L (37.0-47.0) % MCV 85.7 (81-99) FL MCH 28.6 (27-31) PG MCHC 33.4 (33-37) g/dL RDW Std Deviation 43.9 (39-50) fL RDW Coeff of Jong 14.4 (11.5-14.5) % Plt Count 244 (140-350) 10*3/uL MPV 10.7 (7.4-12.2) FL PT (9.7-11.4) secs INR (0.00-5.90) N/A APTT Sodium 137 (135-145) meq/L Potassium 3.9 (3.8-5.2) meq/L Chloride 106 (98-112) meq/L Carbon Dioxide 19 L (23-33) meq/L Anion Gap 12 (5-20) BUN 12 (7-22) mg/dL Creatinine 0.8 (0.50-1.20) mg/dL Estimated GFR > 60 (>60 ml/min/1.73m(2)) BUN/Creatinine Ratio 15.00 (6-20) Glucose 96 (78-110) mg/dL Calculated Osmolality 283.0 (267-292) mOsm/kg Uric Acid 6.1 (2.5-6.2) mg/dl Calcium 10.0 (8.7-10.7) mg/dL Total Bilirubin 0.4 (0.3-1.2) mg/dL AST 24 (8-39) IU/L ALT 27 (9-52) IU/L Alkaline Phosphatase 117 (38-126) IU/L Lactate Dehydrogenase 485 (313-618) IU/L Total Protein 6.5 (6.1-8.0) g/dL Albumin 3.5 (3.5-4.8) g/dL Globulin 3.0 (2.50-4.10) g/dL Albumin/Globulin Ratio 1.10 L (1.3-2.0) mg/g Amnio Fld Other Info Positive (NEGATIVE) Blood Type O NEGATIVE Antibody Screen Negative Screen (NEG) 03/10/16 03/11/16 03/12/16 Range/Units 15:30 05:38 09:55 WBC 14.64 H (4.8-10.8) 10^3/uL RBC 3.25 L (4.20-5.40) 10^6/uL Hgb 9.4 L (12.0-16.0) g/dL Hct 29.2 L (37.0-47.0) % MCV 89.8 (81-99) FL MCH 28.9 (27-31) PG MCHC 32.2 L (33-37) g/dL RDW Std Deviation 46.6 (39-50) fL RDW Coeff of Jong 14.9 H (11.5-14.5) % Plt Count 189 (140-350) 10*3/uL MPV 10.8 (7.4-12.2) FL PT 9.3 L (9.7-11.4) secs INR 0.90 (0.00-5.90) N/A APTT Pending Sodium (135-145) meq/L Potassium (3.8-5.2) meq/L Chloride (98-112) meq/L Carbon Dioxide (23-33) meq/L Anion Gap (5-20) BUN (7-22) mg/dL Creatinine (0.50-1.20) mg/dL Estimated GFR (>60 ml/min/1.73m(2)) BUN/Creatinine Ratio (6-20) Glucose (78-110) mg/dL Calculated Osmolality (267-292) mOsm/kg Uric Acid (2.5-6.2) mg/dl Calcium (8.7-10.7) mg/dL Total Bilirubin (0.3-1.2) mg/dL AST (8-39) IU/L ALT (9-52) IU/L Alkaline Phosphatase (38-126) IU/L Lactate Dehydrogenase (313-618) IU/L Total Protein (6.1-8.0) g/dL Albumin (3.5-4.8) g/dL Globulin (2.50-4.10) g/dL Albumin/Globulin Ratio (1.3-2.0) mg/g Amnio Fld Other Info (NEGATIVE) Blood Type O NEGATIVE Antibody Screen Negative Screen Negative (NEG)
--- NOTE | 2016-03-12 17:27 | OB.PROGRES ---
Subjective Post Day: 2 Pain Management: PO Sellers Catheter: No Flatus: Yes Diet: Regular [place] Feeding Method: Exculsively Ambulating: Yes Concerns / Additional Information: Patient still had a JENKINS this morning, now more occipital and worse with sitting up. She was evaluated by Garret Sanchez CRNA, now s/p blood patch with significant improvement. Breast feeding is improving. Objective - General General Appearance: POSITIVE: No Acute Distress, Cooperative - Cardiovacular Cardiovascular Exam: POSITIVE: RRR Edema: +1 Pedal Edema Extremities: Negative Emma's - Bilaterally - Respiratory Respiratory Exam: POSITIVE: Clear to Auscultation - Bilaterally - Abdomen Bowel Sounds: Present - Fundus/Lochia/Perineum Uterus Consistency: Firm Uterus Position: POSITIVE: Below Umbilicus Lochia Amount: Scant < 10 ml Lochia Color: Rubra/Red - Breast Breast Condition: POSITIVE: Soft Nipple Surface Characteristics: POSITIVE: Smooth Assesstment / Plan (1) Term Current Visit: Yes Status: Acute (2) Status post vacuum-assisted vaginal delivery Current Visit: Yes Status: Acute (3) Fourth degree perineal laceration Current Visit: Yes Status: Acute Support Text: 35 yo G1no P1, PPD 2, s/p vacuum assisted vaginal delivery, s/p 4th degree perineal tear repair. -Spinal JENKINS improved, s/p blood patch -Breast feeding is going better now, still latching better on R -Aggressive bowel regimen -Did receive rhogam -Will start lovenox for dvt ppx 24 hours after blood patch was placed, plan to treat x10 days at home. -Anticipate d/c home tomorrow
[2016-03-13] MEDS: oxyCODONE-ACETAMINOPHEN 5-325 TAB PO PRN ×2 (00:59→07:31)
[2016-03-13] MEDS: GLYCERIN/WITCH HAZEL 1 BOX TOPICAL PRN (07:33)
[2016-03-13] MEDS: LEVOTHYROXINE 75 MCG PO SCH (07:36)
[2016-03-13] MEDS: Prenatal Multivitamin Tab 1 TAB TAB PO SCH (08:34)
[2016-03-13] MEDS: Senna/Docusate Tab 1 TAB TAB PO SCH (08:34)
[2016-03-13] MEDS: DOCUSATE 100 MG CAPSULE PO SCH (08:34)
[2016-03-13] MEDS: POLYETHYLENE GLYCOL 3350 17 GM POWDER PO SCH (08:35)
[2016-03-13 08:37] VITALS: RESP 20; TEMP 98.2
--- NOTE | 2016-03-13 10:38 | DCSUMMARY ---
Hospitalization Summary Admit Date: 03/08/16 Discharge Date: 03/13/16 Primary Diagnosis:: Term , s/p vacuum assisted vaginal delivery Secondary Diagnosis:: 4th degree tear and repair, spinal JENKINS s/p blood patch Delivery Type: Vaginal Hospital Course: 35 yo that delivered a TLGA male infant via vacuum assisted vaginal delivery on 03/10/16. notable for proteinuria that resolved, but then with BPs starting to elevate and edema prior to delivery. She was admitted on for elective IOL. She received 2 doses of cytotec PV, but then was bladimir to frequently for a repeat dose. Cervical ripening continued with low dose pitocin. Her water broke spontaneously at 3 cm dilation. An IUPC was placed and pitocin was then titrated to adequacy. After she entered active labor she progressed as expected. She dilated to complete and began pushing. She pushed for almost 2 hours. / Postop Complications: Delivery complicated by a 4th degree perineal laceration, which was repaired in the OR. Post op course further complicated by spinal JENKINS, now s/p blood patch and doing much better. She is breast feeding. Milk is in today. She has not yet had a BM, although is on a bowel regimen. TID sitz baths recommended. Family history significant for mother dying from PE post op. Given this, , obesity and time spent in OR for laceration repair she is on DVT ppx, initially heparin IV, will d/c home on sq low molecular weight heparin for a total of 10 days post . [place] Complications: Infnat was monitored closely for hypoglycemia, he did require supplementation but never required IV dextrose. Exam - Vitals Vital Signs: Vital Signs Temperature 98.2 F Temperature Source Oral Pulse Rate [Pulse Oximeter] 77 Pulse Rate 77 Respiratory Rate 20 Blood Pressure [Left Arm] 120/75 Blood Pressure [Right Arm] 130/80 Blood Pressure 133/83 Pulse Ox 92 Oxygen Flow Rate 1 Oxygen Flow Rate 7 Oxygen Delivery Method Room Air Height 5 ft 7 in Weight 261 lb - General General Appearance: POSITIVE: No Acute Distress, Cooperative - Head Head Exam: POSITIVE: Normal Inspection - Eye Eye Exam: POSITIVE: Normal Appearance - Neck Neck Exam: POSITIVE: Normal Inspection - Respiratory Respiratory Exam: POSITIVE: Clear to Auscultation - Bilaterally, Breathing Non Labored - Cardiovascular Cardiovascular Exam: POSITIVE: RRR - GI/Abdominal GI/Abdominal Exam: POSITIVE: Normal Bowel Sounds - External Exam: POSITIVE: Deferred - Extremities Extremities Exam: POSITIVE: +1 Edema - Neurological Neurological Exam: POSITIVE: Alert, Oriented x 3 - Psychiatric Psychiatric Exam: POSITIVE: Normal Affect, Normal Mood Patient Problems - Patient Problem List (1) Term Current Visit: Yes Status: Acute (2) Status post vacuum-assisted vaginal delivery Current Visit: Yes Status: Acute (3) Fourth degree perineal laceration Current Visit: Yes Status: Acute Support Text: 35 yo G1 now P1 PPD 3, doing very well Ambulating, tolerating regular diet, passing flatus - no BM yet Aggressive bowel regimen and tid sitz baths for 4th degree perineal laceration Lovenox sq x10 days pp for dvt ppx given high risk - pp, obesity, long or repair , family history D/c to home today F/u with me in 1 week and again at 6 weeks pp
[2016-03-13] MEDS ORDERED: ENOXAPARIN SODIUM 40 MG/0.4 ML SYRINGE SUBCUT SCH (11:00)
== END 2016-03-13 13:55 | disposition home or self-care (01) | DRG 775 ==
LOC: OBOP 18:26 → OBIP 19:15
PROVIDERS: ADMIT Student in an Organized Health Care Education/Training Program; ATTEND Student in an Organized Health Care Education/Training Program
PROC: 3E033VJ Introduction of Other Hormone into Peripheral Vein, Percutaneous Approach (ICD-10-PCS; principal; 2016-03-08)
PROC: 10D07Z6 Extraction of Products of Conception, Vacuum, Via Natural or Artificial Opening (ICD-10-PCS; 2016-03-10)
PROC: 0DQP0ZZ Repair Rectum, Open Approach (ICD-10-PCS; 2016-03-10)
DX: O70.3 Fourth degree perineal laceration during delivery (principal); Z37.0 Single live birth; Z3A.40 40 weeks gestation of pregnancy
CPT/HCPCS: 36415; 80053; 81003; 83615; 84112; 84550; 85025; 85027; 85610; 85730; 86850; 86900; 86901; 86970; J1644; J1650; J2001; J2210; J2250; J2405; J2790; J3010; J3490; J7050; J7120

== ENCOUNTER → 2016-04-20 | Outpatient (CLI) | payer BC | LOC: LAB 10:37 | PROVIDERS: ATTEND Student in an Organized Health Care Education/Training Program | DX: E03.9 Hypothyroidism, unspecified (principal); Z13.1 Encounter for screening for diabetes mellitus | CPT/HCPCS: 36415; 82951; 84443 ==